=== PATIENT | male | born 1930 | race Caucasian/White ===

== ENCOUNTER 2020-04-15 19:23 | Inpatient (IN) | payer OTHER, SELFPAY ==
[~2020-04-15] VITALS: Ht 188 cm; Wt 111.6 kg
--- NOTE | 2020-04-15 19:27 | NUR ---
PT BIBA ALS. PT TAKEN TO BED 1
--- NOTE | 2020-04-15 19:31 | NUR ---
Dr. Conroy examining patient.
[2020-04-15 19:35] VITALS: BP 136/47
[2020-04-15] MEDS ORDERED: methylPREDNISolone SS 125 MG in WATER STERILE 2 ML IV ONE (19:35)
[2020-04-15] MEDS ORDERED: AZITHROMYCIN 500 MG in DEXTROSE 5% 250 ML IV ONE (19:35)
--- NOTE | 2020-04-15 19:35 | NUR ---
ASSESSMENT COMPLETED AT 1933. 89 YEAR OLD MALE COMPLAINS OF SHORTNESS OF BREATHE SINCE MORNING. PT ALSO COMPLAINS OF FEVER OF 103 AT HOME. PT AOX4, BREATHING LABORED AND TACHYPNEA. PT ON 6L NC, SPO2 91%, RR 26. PT SKIN WARM AND DRY. BED IN LOWEST POSITION, LOCKED, BED RAIL UPX1. PT PLACED ON MONITOR, ERMD MADE AWARE OF STATUS. PT DENIES ANY COUGH, COVID CONTACT. COVID PRECAUTIONS PLACED PMH - COPD, HTN ALLERGIES - VICOTIN, DILAUDID
[2020-04-15] MEDS ORDERED: AZITHROMYCIN 500 MG INJ VIAL IV ONE (19:52)
[2020-04-15] MEDS ORDERED: methylPREDNISolone SS 125 MG/2 ML VIAL ONE (19:52)
[2020-04-15] MEDS ORDERED: WATER STERILE 10 ML MC ONE (19:52)
[2020-04-15] MEDS ORDERED: cefTRIAXone 1,000 MG VIAL ONE (19:53)
[2020-04-15] MEDS ORDERED: ACETAMINOPHEN 325 MG TAB PO ONE (19:55)
[2020-04-15 20:11] LABS: BASOPHILS # (AUTO) 0.2 K/uL (0.00-0.22); BASOPHILS % (AUTO) 1.2 % (0.0-2.0); EOSINOPHILS % (AUTO) 0.3 % (0.0-4.0); HEMATOCRIT 40.2 % (36-52); HEMOGLOBIN 12.8 g/dL (12.0-18.0); LYMPHOCYTES # (AUTO) 0.3 K/uL (2.0-11.5); LYMPHOCYTES % (AUTO) 2.1 % (20.5-51.1); MEAN CORPUSCULAR HEMOGLOBIN 29 pg (27-31); MEAN CORPUSCULAR HGB CONC 32 g/dL (33-37); MEAN CORPUSCULAR VOLUME 90.6 fL (80-94); MONOCYTES # (AUTO) 0.6 K/uL (0.8-1.0); MONOCYTES % (AUTO) 4.6 % (1.7-9.3); NEUTROPHILS # (AUTO) 12.7 K/uL (1.8-7.7); NEUTROPHILS % (AUTO) 91.8 % (42.2-75.2); PLATELET COUNT (AUTO) 169 K/uL (140-450); RED BLOOD CELL COUNT(AUTO) 4.44 MIL/uL (4.20-6.10); WHITE BLOOD COUNT (AUTO) 13.8 K/uL (4.8-10.8)
--- NOTE | 2020-04-15 20:26 | NUR ---
XRAY AT BEDSIDE
[2020-04-15 20:30] LABS: LACTATE DEHYDROGENASE 203 U/L (85-227)
[2020-04-15 20:31] LABS: ALBUMIN 3.7 g/dL (3.4-5.0); ANION GAP 15.6 (8-16); ASPARTATE AMINOTRANSFERASE 20 U/L (15-37); CARBON DIOXIDE 24.8 mmol/L (21-32); CHLORIDE 106 mmol/L (98-107); CREATININE 1.9 mg/dL (0.6-1.3); GLUCOSE 114 mg/dL (74-106); POTASSIUM 4.4 mmol/L (3.5-5.1); SODIUM SERUM 142 mmol/L (136-145); UREA NITROGEN, BLOOD 31 mg/dL (7-18)
[2020-04-15 20:33] LABS: C-REACTIVE PROTEIN QUANT 3.1 mg/dL (0.0-0.9)
[2020-04-15 20:44] LABS: PROTHROMBIN TIME 15.4 secs (10.8-13.4)
--- NOTE | 2020-04-15 20:57 | NUR ---
TEMP 98.8
--- NOTE | 2020-04-15 22:31 | NUR ---
INFORMED KENDRA QUINTANILLA REGARDING PT MEDICATION RECONCILATION TO UPDATE. PT FAMILY CALLED Quynh MILLER [phone] NO ANSWER.
[2020-04-15] MEDS ORDERED: VITA1TAB44 PO (22:37)
[2020-04-15] MEDS ORDERED: DOXA2TAB1 PO (22:37)
[2020-04-15] MEDS ORDERED: RIVA15TA1 PO (22:37)
[2020-04-15] MEDS ORDERED: ASPI-1884 PO (22:37)
[2020-04-15] MEDS ORDERED: CLON-527 PO (22:37)
[2020-04-15] MEDS ORDERED: POTA8TER12 PO (22:37)
[2020-04-15] MEDS ORDERED: LEVO0.179 PO (22:37)
[2020-04-15] MEDS ORDERED: AMLO5TAB PO (22:37)
[2020-04-15] MEDS ORDERED: ASCO500T95 PO (22:37)
[2020-04-15] MEDS ORDERED: ROSU20TA1 PO (22:37)
[2020-04-15] MEDS ORDERED: FURO-570 PO (22:37)
[2020-04-15] MEDS ORDERED: UMEC1POW IH (22:37)
[2020-04-15] MEDS ORDERED: CLON0.2T43 PO (22:37)
[2020-04-15 22:49] LABS: APPEARANCE,URINE CLEAR (CLEAR); BILIRUBIN,URINE NEGATIVE (NEGATIVE); BLOOD, URINE NEGATIVE (NEGATIVE); COLOR,URINE YELLOW (YELLOW); PH,URINE 5.5 (5.0-9.0); UGLUCOSE NEGATIVE (NEGATIVE)
[2020-04-15 22:50] LABS: LEUKOCYTE ESTERASE ,URINE TRACE (NEGATIVE); NITRITE, URINE NEGATIVE (NEGATIVE); RBC,URINE NONE SEEN /HPF (0-5); WBC,URINE 0-5 /HPF (0-5)
--- NOTE | 2020-04-15 23:01 | NUR ---
Note geovannyone in EDM - 04/15/20 at 2303 by MEDJJ 89 YEAR OLD MALE COMPLAINS OF SHORTNESS OF BREATHE SINCE MORNING. PT ALSO COMPLAINS OF FEVER OF 103 AT HOME. PT AOX4, BREATHING LABORED AND TACHYPNEA. PT ON 6L NC, SPO2 91%, RR 26. PT SKIN WARM AND DRY. BED IN LOWEST POSITION, LOCKED, BED RAIL UPX1. PMH - COPD, HTN ALLERGIES - VICOTIN, DILAUDID
--- NOTE | 2020-04-15 23:10 | NUR ---
REPORT GIVEN TO NOEMY QUINTANILLA, TRANSFER OF CARE AT THIS TIME
[2020-04-15] MEDS: NACL 0.9% 1,000 ML IV SCH (23:14)
[2020-04-15] MEDS ORDERED: ALBUTEROL HFA MDI 90 MCG/ACTUATION 8 GM INH PRN (23:15)
[2020-04-15] MEDS ORDERED: ACETAMINOPHEN 325 MG TAB PO PRN (23:15)
[2020-04-15] MEDS ORDERED: ONDANSETRON 4 MG/2 ML VIAL IVP PRN (23:15)
[2020-04-16] MEDS ORDERED: ALBUTEROL HFA MDI 90 MCG/ACTUATION 8 GM INH SCH
[2020-04-16 00:03] LABS: FREE T4 (FREE THYROXINE) 1.01 ng/dL (0.76-1.46); PHOSPHORUS 1.9 mg/dL (2.5-4.9); THYROID STIMULATING HORMONE 2.87 uIU/mL (0.34-3.74)
[2020-04-16] MEDS ORDERED: FOLIC ACID PO ×2 (00:21→02:01)
--- NOTE | 2020-04-16 00:37 | NUR ---
PT APPEARS TO BE SLEEPING IN BED, R/R EQUAL, AND UNLABORED, VSS. SIDE RAIL X1, BED IN LOW POSITION WILL CONTINUE TO MONITOR.
[2020-04-16] MEDS ORDERED: ROSU20TA1 PO ×3 (00:53→02:27)
--- NOTE | 2020-04-16 01:17 | NUR ---
PT STATES HE CAN'T SLEEP, AND WANTS TO GO HOME. ERMD MADE AWARE.
--- NOTE | 2020-04-16 01:34 | NUR ---
TURNED LIGHTS OFF FOR PT IN ROOM, LOWERED HOB TO 15 DEGREE ANGLE, PT STATED HE FELT LIKE HE COULD FINALLY GET SOME REST, AND WOULD STAY. ERMD MADE AWARE.
[2020-04-16] MEDS ORDERED: CLON0.1T42 PO (01:56)
[2020-04-16] MEDS ORDERED: DOXA2TAB1 PO (01:57)
[2020-04-16] MEDS ORDERED: LEVO0.173 PO (01:58)
[2020-04-16] MEDS ORDERED: RIVA15TA1 PO ×2 (01:59→02:27)
[2020-04-16] MEDS ORDERED: VIT B12 (02:02)
[2020-04-16] MEDS ORDERED: ASPI-1822 PO (02:06)
[2020-04-16] MEDS ORDERED: VIT C PO (02:07)
[2020-04-16] MEDS ORDERED: FERR-212 PO (02:08)
[2020-04-16] MEDS ORDERED: ALBUTEROL HFA MDI 90 MCG/ACTUATION 8 GM INH PRN (02:20)
[2020-04-16] MEDS ORDERED: BENZONATATE 100 MG CAPLF PO PRN (02:20)
--- NOTE | 2020-04-16 02:23 | NUR ---
PT APPEARS TO BE SLEEPING IN BED, R/R EQUAL, AND UNLABORED, VSS. SIDE RAIL X1, BED IN LOW POSITION WILL CONTINUE TO MONITOR.
[2020-04-16] MEDS ORDERED: CLON-527 PO (02:27)
[2020-04-16] MEDS ORDERED: CLON0.2T43 PO (02:27)
[2020-04-16] MEDS ORDERED: SODIUM PHOS / POTASSIUM PHOS 1 PKT PDR PO SCH (02:40)
--- NOTE | 2020-04-16 03:06 | NUR ---
PT APPEARS TO BE SLEEPING IN BED, R/R EQUAL, AND UNLABORED, VSS. SIDE RAIL X1, BED IN LOW POSITION WILL CONTINUE TO MONITOR.
[2020-04-16] MEDS ORDERED: DEXTROSE 50% 50 ML SYR IVP PRN (03:20)
[2020-04-16] MEDS ORDERED: INSULIN LISPRO SLIDING SCALE 100 UNITS/ML VIAL SUBQ PRN (03:20)
--- NOTE | 2020-04-16 04:03 | NUR ---
PT APPEARS TO BE SLEEPING IN BED, R/R EQUAL, AND UNLABORED, VSS. SIDE RAIL X1, BED IN LOW POSITION WILL CONTINUE TO MONITOR.
--- NOTE | 2020-04-16 04:12 | NUR ---
I WAS UNABLE TO OBTAIN ABG AT THIS TIME I WILL HAVE OTHER COMMERCIAL LOAN SPECIALIST ATTEMPT ABG
[2020-04-16] MEDS ORDERED: metroNIDAZOLE 500 MG/NS PREMIX 100 ML IV SCH (05:00)
--- NOTE | 2020-04-16 05:30 | NUR ---
PT RESTING QUIETLY IN BED, R/R EQUAL, AND UNLABORED, VSS SIDE RAIL X1, BED IN LOW POSITION WILL CONTINUE TO MONITOR.
[2020-04-16] MEDS ORDERED: LEVOTHYROXINE 0.05 MG TAB PO SCH (06:30)
--- NOTE | 2020-04-16 07:10 | NUR ---
Pt report given to SOCORRO ABRAMS. Transfer of care at this time.
[2020-04-16] MEDS ORDERED: BLOOD GLUCOSE MONITORING 1 DEV DEV FS SCH (07:30)
--- NOTE | 2020-04-16 07:38 | NUR ---
PHARMACY CONTACTED FOR SYNTHROID MEDICATION, MICHAEL VALADEZ MADE AWARE
[2020-04-16 07:47] LABS: CHOL/HDL RATIO 2.2 (1-4.5)
[2020-04-16] MEDS: ASPIRIN 81 MG TAB.CHEW PO SCH (08:40)
[2020-04-16] MEDS: DOCUSATE SODIUM 100 MG GELCAP PO SCH ×2 (08:41→21:18)
[2020-04-16] MEDS: amLODIPine 5 MG TAB PO SCH (08:41)
[2020-04-16] MEDS: cloNIDine 0.1 MG TAB PO SCH (08:41)
[2020-04-16] MEDS: FOLIC ACID 1 MG TAB PO SCH (08:41)
[2020-04-16] MEDS: ZINC SULF 220 MG CAP PO SCH (08:42)
--- NOTE | 2020-04-16 08:44 | NUR ---
PATIENT HAS BEEN SCREENED AND CATEGORIZED MODERATE NUTRITION RISK. PATIENT WILL BE SEEN WITHIN 3-5 DAYS OF ADMISSION. 04/18/2020-04/20/[address]
--- NOTE | 2020-04-16 08:45 | NUR ---
PT STATING HE WANTS TO LEAVE AMA. DR SNOW NOTIFIED AND IS AT BEDSIDE TALKING TO PT.
[2020-04-16] MEDS ORDERED: FUROSEMIDE 20 MG TAB ONE (08:48)
[2020-04-16] MEDS ORDERED: POTASSIUM CHLORIDE 10 MEQ TABER PO ONE (08:49)
[2020-04-16] MEDS: VITAMIN D 400 IU TAB PO SCH (08:57)
[2020-04-16] MEDS: guaiFENesin 600 MG TABER PO SCH ×2 (08:57→21:18)
[2020-04-16] MEDS: FERROUS SULFATE 325 MG TABEC PO SCH (08:57)
[2020-04-16] MEDS: DEXAMETHASONE 6 MG TAB PO SCH (08:57)
[2020-04-16] MEDS: FUROSEMIDE 40 MG TAB PO SCH (08:57)
[2020-04-16] MEDS: ASCORBIC ACID 500 MG TAB PO SCH (08:58)
[2020-04-16] MEDS ORDERED: AZITHROMYCIN 250 MG TAB PO SCH (09:00)
[2020-04-16] MEDS ORDERED: RIVAROXABAN 15 MG TAB PO SCH (09:00)
[2020-04-16] MEDS ORDERED: POTASSIUM CHLORIDE 8 MEQ TABER PO SCH (09:00)
[2020-04-16] MEDS ORDERED: LORazepam 2 MG/ML VIAL IVP PRN (09:15)
[2020-04-16] MEDS ORDERED: ZOLPIDEM 10 MG TAB PO PRN (09:15)
[2020-04-16] MEDS ORDERED: MAG SULF 2000 MG/WATER PREMIX 50 ML IV PRN (09:15)
[2020-04-16] MEDS ORDERED: ACETAMINOPHEN 325 MG TAB PO PRN (09:15)
[2020-04-16] MEDS ORDERED: DOCUSATE SODIUM 100 MG GELCAP PO PRN (09:15)
[2020-04-16] MEDS ORDERED: POTASSIUM CHLORIDE 10 MEQ TABER PO PRN (09:15)
[2020-04-16] MEDS ORDERED: ONDANSETRON 4 MG/2 ML VIAL IVP PRN (09:15)
[2020-04-16] MEDS: DOXAZOSIN 2 MG TAB PO SCH (09:19)
[2020-04-16] MEDS: ALBUTEROL HFA MDI 90 MCG/ACTUATION 8 GM INH SCH ×3 (09:38→18:00)
--- NOTE | 2020-04-16 09:45 | NUR ---
BREAKFAST TRAY PLACED AT BEDSIDE FOR PT. PT IS SITTING UP IN BED WITH FEET DANGLNG. VSS. DENIES ANY PAIN AT THIST TIME
[2020-04-16] MEDS ORDERED: CYANOCOBALAMIN 1,000 MCG TAB PO SCH (10:00)
[2020-04-16] MEDS ORDERED: ATORVASTATIN 20 MG TAB ONE (10:23)
[2020-04-16] MEDS: ATORVASTATIN 80 MG TAB PO SCH (10:35)
[2020-04-16] MEDS ORDERED: POTASSIUM CHLORIDE 10 MEQ TABER PO SCH (11:59)
--- NOTE | 2020-04-16 13:19 | NUR ---
INFLUENZA SWAB SENT TO LAB
--- NOTE | 2020-04-16 19:13 | NUR ---
REPORT RECEIVED FROM SOCORRO ABRAMS FOR CONTINUATION OF CARE.
--- NOTE | 2020-04-16 20:02 | NUR ---
PT AMBULATED TO RESTROOM W/ STEADY GAIT.
--- NOTE | 2020-04-16 20:05 | NUR ---
PT AMBULATED TO BED 1 W/ STEADY GAIT. PT CONNECTED TO BUILDING COORDINATOR, PULSE OX , BP CUFF. PT RESTING IN BED LOCKED AND IN LOWEST POSITION, HOB ELEVATED,SIDE RAILS X1. PT RR EVEN AND UNLABORED, VSS.
[2020-04-16] MEDS ORDERED: cloNIDine 0.1 MG TAB PO SCH (21:00)
--- NOTE | 2020-04-16 21:47 | NUR ---
RECEIVED REPORT FROM AM SHIFT. PT SEEN AND ASSESSED. PT ON 4L NC WITH SPO2 OF 92%. RALES BS ON AUSCULTATION. PT IS IN NO APPARENT RESPIRATORY TX AT THIS TIME. MDI TX GIVEN ORDERED AND PT TOLERATED WELL WITH NO ADVERSE REACTION. WILL CONTINUE TO MONITOR PT.
--- NOTE | 2020-04-16 21:50 | NUR ---
PT RESTING IN BED, LOCKED AND IN LOWEST POSITION, HOB ELEVATED, SIDE RAIL X1 FOR PT SAFETY, VSS.
[2020-04-16] MEDS: NACL 0.9% 1,000 ML IV SCH (22:24)
--- NOTE | 2020-04-16 23:00 | NUR ---
PT RESTING IN BED, LOCKED AND IN LOWEST POSITION, VISIBLE RISE AND FALL OF CHEST, RR EVEN AND UNLABORED, AROUSABLE BY VERBAL STIMULATION, HOB ELEVATED, SIDE RAIL X1. VSS.
[2020-04-17] MEDS: ALBUTEROL HFA MDI 90 MCG/ACTUATION 8 GM INH SCH (00:06)
--- NOTE | 2020-04-17 00:06 | NUR ---
PT IS IN NO APPARENT RESPIRATORY TX AT THIS TIME. MDI TX GIVEN ORDERED AND PT TOLERATED WELL WITH NO ADVERSE REACTION. WILL CONTINUE TO MONITOR PT.
--- NOTE | 2020-04-17 00:30 | NUR ---
PT RESTING IN BED, LOCKED AND IN LOWEST POSITION, HOB ELEVATED, SIDE RAIL X2 FOR PT SAFETY. PT RR EVEN AND UNLABORED, VISIBLE RISE AND FALL OF CHEST, VSS .
[2020-04-17] MEDS ORDERED: PIPERACILLIN/TAZOBACTAM 2.25 GM VIAL IV ONE ×2 (00:34→06:09)
[2020-04-17] MEDS: PIPERACILLIN/TAZOBACTAM 2.25 GM in DEXTROSE 5% 50 ML IV SCH ×3 (00:50→11:16)
--- NOTE | 2020-04-17 01:47 | NUR ---
PT RESTING IN BED, LOCKED AND IN LOWEST POSITION, HOB ELEVATED, SIDE RAILS X2 FOR PT SAFETY. VISIBLE RISE AND FALL OF CHEST, AROUSABLE BY VERBAL STIMULATION, RR EVEN AND UNLABORED, VSS.
--- NOTE | 2020-04-17 03:00 | NUR ---
PT PROVIDED URNIAL FOR COMFORT.
--- NOTE | 2020-04-17 03:35 | NUR ---
PT RESTING IN BED, LOCKED AND IN LOWEST POSITION, HOB ELEVATED, SIDE RAIL X2 FOR PT SAFETY. VISIBLE RISE AND FALL OF CHEST, RR EVEN AND UNLABORED, VSS.
--- NOTE | 2020-04-17 06:00 | NUR ---
PT RESTING IN BED, LOCKED AND IN LOWEST POSITION, HOB ELEVATED, SIDE RAIL X2 FOR PT SAFETY. RR EVEN AND UNLABORED, VSS.
[2020-04-17] MEDS ORDERED: LEVOTHYROXINE 0.075 MG TAB ONE ×2 (06:11→06:12)
[2020-04-17] MEDS ORDERED: LEVOTHYROXINE 0.1 MG TAB ONE ×2 (06:12)
--- NOTE | 2020-04-17 06:20 | NUR ---
PT IV L WRIST D/C . NEW IV 20G LEFT A/C INSERTED, IV PATENT, NO INFILTRATION , REDNESS, SWELLING NOTED.
[2020-04-17] MEDS ORDERED: LEVOTHYROXINE 0.1 MG, LEVOTHYROXINE 0.075 MG PO SCH ×2 (06:30)
[2020-04-17 06:33] LABS: BASOPHILS % (AUTO) 0.2 % (0.0-2.0); HEMATOCRIT 39.5 % (36-52); HEMOGLOBIN 12.6 g/dL (12.0-18.0); LYMPHOCYTES # (AUTO) 0.8 K/uL (2.0-11.5); LYMPHOCYTES % (AUTO) 5.8 % (20.5-51.1); MEAN CORPUSCULAR HEMOGLOBIN 29 pg (27-31); MEAN CORPUSCULAR HGB CONC 32 g/dL (33-37); MEAN CORPUSCULAR VOLUME 91.5 fL (80-94); MONOCYTES % (AUTO) 6.9 % (1.7-9.3); NEUTROPHILS # (AUTO) 12.4 K/uL (1.8-7.7); NEUTROPHILS % (AUTO) 87.1 % (42.2-75.2); PLATELET COUNT (AUTO) 156 K/uL (140-450); RED BLOOD CELL COUNT(AUTO) 4.31 MIL/uL (4.20-6.10); RED CELL DISTRIBUTION WIDTH 18.6 % (11.6-13.7); WHITE BLOOD COUNT (AUTO) 14.2 K/uL (4.8-10.8)
[2020-04-17 06:43] LABS: ANION GAP 15.7 (8-16); CARBON DIOXIDE 23.9 mmol/L (21-32); CHLORIDE 107 mmol/L (98-107); CREATININE 1.9 mg/dL (0.6-1.3); GLUCOSE 145 mg/dL (74-106); POTASSIUM 4.6 mmol/L (3.5-5.1); SODIUM SERUM 142 mmol/L (136-145); UREA NITROGEN, BLOOD 44 mg/dL (7-18)
--- NOTE | 2020-04-17 07:16 | NUR ---
REPORT GIVEN TO SOCORRO ORTEGA FOR CONTINUATION OF CARE.
--- NOTE | 2020-04-17 07:30 | NUR ---
89 MALE PT ALERT AND AWAKE X 4. PT AMBULATORY WITH STEADY GAIT. GENERALIZED BRUISING THROUGHOUT BODY, NO WOUNDS PRESENT. PT HAS NEW IV PLACED BY PM SHIFT TO PTS L AC 20G WITH NORMAL SALINE INUSING AT 50 MLS/HR. PT USING URINAL AT BEDSIDE. DENIES PAIN. SAFETY PRECAUTIONS IN PLACE.
[2020-04-17] MEDS: VITAMIN D 400 IU TAB PO SCH (09:00)
[2020-04-17] MEDS: ZINC SULF 220 MG CAP PO SCH (09:00)
[2020-04-17] MEDS: DEXAMETHASONE 6 MG TAB PO SCH (09:00)
[2020-04-17] MEDS ORDERED: AZITHROMYCIN 250 MG TAB PO SCH (09:00)
[2020-04-17] MEDS ORDERED: RIVAROXABAN 10 MG TAB PO SCH (09:00)
[2020-04-17] MEDS: DOXAZOSIN 2 MG TAB PO SCH (09:00)
[2020-04-17] MEDS: FUROSEMIDE 40 MG TAB PO SCH (09:00)
[2020-04-17] MEDS: ASPIRIN 81 MG TAB.CHEW PO SCH (09:11)
[2020-04-17] MEDS: cloNIDine 0.1 MG TAB PO SCH (09:12)
[2020-04-17] MEDS: DOCUSATE SODIUM 100 MG GELCAP PO SCH (09:13)
[2020-04-17] MEDS: FERROUS SULFATE 325 MG TABEC PO SCH (09:14)
[2020-04-17] MEDS: FOLIC ACID 1 MG TAB PO SCH (09:14)
[2020-04-17] MEDS: guaiFENesin 600 MG TABER PO SCH (09:15)
[2020-04-17] MEDS: amLODIPine 5 MG TAB PO SCH (10:00)
[2020-04-17] MEDS: ATORVASTATIN 80 MG TAB PO SCH (10:00)
[2020-04-17] MEDS: ASCORBIC ACID 500 MG TAB PO SCH (10:00)
--- NOTE | 2020-04-17 10:47 | NUR ---
Dr. Del Castillo is evaluating the patient at bedside.
--- NOTE | 2020-04-17 11:25 | NUR ---
PT GIVEN URINAL
[2020-04-17] MEDS ORDERED: LEVO750T2 PO (11:32)
[2020-04-17] MEDS ORDERED: AZIT250T3 PO (11:32)
[2020-04-17 12:19] VITALS: BP 133/60
--- NOTE | 2020-04-17 13:00 | NUR ---
INPATIENT DISCHARGE FROM ED. PT WENT HOME WITH PRESCRIPTION FOR AZITHROMYOCIN AND LEVAQUIN. IV REMOVED WITH CATH INTACT. PT WHEELCHAIRED TO CAR AND DISCHARGE SIGNED BY PT. DISCHARGE PAPERWORK GIVEN AT CAR SIDE TO PT AND . LABS AND XRAYS INCLUDED. INSTRUCTED TO FOLLOW UP WITH PCP IN 2-3 DAYS. PTS AND PT VERBALIZED UNDERSTANDING.
== END 2020-04-17 13:07 | disposition home or self-care (01) | DRG 871 ==
LOC: EEVIPCON 19:23 → MED 19:23 → MMU 23:14 → MTU 04-16 08:43
PROVIDERS: ADMIT General Practice; ATTEND General Practice
DX: A41.9 Sepsis, unspecified organism (principal); N17.0 Acute kidney failure with tubular necrosis; J69.0 Pneumonitis due to inhalation of food and vomit; J96.00 Acute respiratory failure, unspecified whether with hypoxia or hypercapnia; J44.1 Chronic obstructive pulmonary disease with (acute) exacerbation; L03.116 Cellulitis of left lower limb; L03.115 Cellulitis of right lower limb; D68.9 Coagulation defect, unspecified; N39.0 Urinary tract infection, site not specified; E78.5 Hyperlipidemia, unspecified; E66.9 Obesity, unspecified; E83.39 Other disorders of phosphorus metabolism; I65.29 Occlusion and stenosis of unspecified carotid artery; I11.0 Hypertensive heart disease with heart failure; I50.9 Heart failure, unspecified; E03.9 Hypothyroidism, unspecified; Z90.49 Acquired absence of other specified parts of digestive tract; Z90.5 Acquired absence of kidney; Z79.899 Other long term (current) drug therapy; Z71.3 Dietary counseling and surveillance; Z03.818 Encounter for observation for suspected exposure to other biological agents ruled out; Z68.31 Body mass index [BMI] 31.0-31.9, adult
CPT/HCPCS: 36415; 71045; 80048; 80053; 81001; 82150; 82550; 82728; 83036; 83605; 83615; 83690; 83735; 83880; 84100; 84439; 84443; 84484; 85025; 85379; 85384; 85610; 85730; 86140; 87040; 87086; 87804; 93005; 93971; 94664; 96365; 96375; 99291; J0456; J0696; J2543; J2930; J3420; J3490; J7060; Q0092; U0003-CS